=== PATIENT | female | born 1985 | race Hispanic/Latino ===

== ENCOUNTER 2021-06-03 21:48 | Inpatient (IN) | payer MEDICAID, OTHER ==
[2021-06-03] MEDS ORDERED: hydrALAZINE 20 MG/ML VIAL SLOW IVP PRN (22:48)
[2021-06-03 22:49] VITALS: BMI 35.5
[2021-06-03] MEDS ORDERED: Ondansetron PF 4 MG/2 ML Vial IVP PRN (22:53)
[2021-06-03] MEDS ORDERED: Lactated Ringer's 250 ML IV SCH (23:00)
[2021-06-03] MEDS ORDERED: Ondansetron PF 4 MG/2 ML Vial ONE (23:01)
[2021-06-04] MEDS ORDERED: Promethazine HCl 25 MG/ML VIAL IM PRN (03:10)
[2021-06-04] MEDS ORDERED: hydrALAZINE 20 MG/ML VIAL SLOW IVP PRN ×3 (03:10→12:15)
[2021-06-04] MEDS ORDERED: Ondansetron PF 4 MG/2 ML Vial IVP PRN (03:10)
[2021-06-04] MEDS ORDERED: NS w/ Oxytocin 30 units 500 ML ONE ×2 (03:10→05:58)
[2021-06-04] MEDS ORDERED: Penicillin G Potassium 5 MILL.UNITS VIAL ONE (03:11)
[2021-06-04 03:54] LABS: Hemoglobin 12.4 g/dL (12.0-15.5); Mean Corpuscular HGB CONC 31.7 g/dL (32.0-36.0); Mean Corpuscular Hemoglobin 26.9 pg (27.0-33.0); Mean Corpuscular Volume 84.8 fl (81.6-98.3); Mean Platelet Volume 11.3 fl (7.4-10.4); Platelet Count 333 10x3/uL (150-450); RBC Distribution Width 15.1 % (11.5-14.5); Red Blood Cell (RBC) Count 4.61 10x6/uL (3.90-5.03); White Blood Cell (WBC) Count 19.9 10x3/uL (3.5-10.5)
[2021-06-04 04:13] LABS: SARS-CoV-2 NAA Rapid Test Not Detected (NotDetected)
[2021-06-04 04:24] LABS: Hep B Surf Ag Non-Reactive S/CO (NonReactive)
[2021-06-04 04:25] LABS: Syphilis Antibody Nonreactive (Nonreactive); Syphilis Antibody Index 0.05 S/CO (<1.00 Non-Reactive)
[2021-06-04 04:27] LABS: HBSAg Index 0.16 S/CO (0-0.99)
[2021-06-04] MEDS ORDERED: Lidocaine 1% (PF) 30 ML VIAL ONE (05:01)
[2021-06-04] MEDS ORDERED: Boostrix 0.5 ML (Tdap) VIAL IM ONE (08:14)
[2021-06-04] MEDS ORDERED: Bisacodyl 10 MG SUPP PR PRN ×2 (08:14→12:15)
[2021-06-04] MEDS ORDERED: Lanolin Ointment 7 GM TUBE TOP PRN ×2 (08:14→12:15)
[2021-06-04] MEDS ORDERED: Milk Of Magnesia 30 ML UDCUP PO PRN ×2 (08:14→12:15)
[2021-06-04] MEDS ORDERED: Ferrous Sulfate 325 MG TAB PO SCH ×2 (08:30→17:00)
[2021-06-04 08:45] LABS: Hemoglobin 9.3 g/dL (12.0-15.5)
[2021-06-04] MEDS ORDERED: Prenatal Vitamin 1 TAB PO SCH (09:00)
[2021-06-04] MEDS ORDERED: Docusate Calcium (SURFAK) 240 MG CAP PO SCH (09:00)
[2021-06-04 13:34] LABS: HIV (1/2) Antibody/Antigen Non-Reactive (NonReactive); HIV 1/2 INDEX 0.14 S/CO (<1.00)
[2021-06-04] MEDS ORDERED: Ibuprofen 800 MG TAB PO SCH (14:00)
[2021-06-04] MEDS: Ibuprofen 800 MG TAB PO SCH ×2 (14:26→21:14)
[2021-06-04] MEDS: Ferrous Sulfate 325 MG TAB PO SCH (15:19)
[2021-06-04] MEDS: Docusate Calcium (SURFAK) 240 MG CAP PO SCH (21:14)
[2021-06-05] MEDS: Ibuprofen 800 MG TAB PO SCH ×3 (05:13→21:03)
[2021-06-05] MEDS: Docusate Calcium (SURFAK) 240 MG CAP PO SCH ×2 (07:51→21:03)
[2021-06-05] MEDS: Prenatal Vitamin 1 TAB PO SCH (07:51)
[2021-06-05] MEDS: Ferrous Sulfate 325 MG TAB PO SCH ×2 (08:03→15:30)
[2021-06-06] MEDS: Ibuprofen 800 MG TAB PO SCH (05:00)
[2021-06-06 07:47] VITALS: BP 111/74; TEMP 98.5
[2021-06-06] MEDS: Prenatal Vitamin 1 TAB PO SCH (08:24)
[2021-06-06] MEDS: Docusate Calcium (SURFAK) 240 MG CAP PO SCH (08:24)
[2021-06-06] MEDS: Ferrous Sulfate 325 MG TAB PO SCH (08:24)
== END 2021-06-06 12:55 | disposition home or self-care (01) | DRG 805 ==
LOC: CSHLD/OP 21:48 → CSHLD 06-04 00:56 → CSHPP 06-04 12:05
PROVIDERS: ADMIT Student in an Organized Health Care Education/Training Program; ATTEND Student in an Organized Health Care Education/Training Program
PROC: 10E0XZZ Delivery of Products of Conception, External Approach (ICD-10-PCS; principal; 2021-06-04)
DX: O69.81X0 Labor and delivery complicated by cord around neck, without compression, not applicable or unspecified (principal); O45.93 Premature separation of placenta, unspecified, third trimester; Z37.0 Single live birth; Z3A.38 38 weeks gestation of pregnancy; Z20.822 Contact with and (suspected) exposure to COVID-19; E66.9 Obesity, unspecified; O99.214 Obesity complicating childbirth; O66.3 Obstructed labor due to other abnormalities of fetus; O76 Abnormality in fetal heart rate and rhythm complicating labor and delivery; O99.824 Streptococcus B carrier state complicating childbirth
CPT/HCPCS: 36415; 85027; 86780; 86850; 86900; 86901; 87340; 87389; 88307; 99285; J2405; U0002

== ENCOUNTER 2022-04-03 18:30 | Emergency (ER) | payer MEDICAID, SELFPAY ==
[2022-04-03] MEDS ORDERED: Ondansetron ODT 4 MG TAB ONE (20:04)
[2022-04-03] MEDS ORDERED: Ibuprofen 200 MG TAB ONE (20:05)
[2022-04-03 20:22] LABS: #Basophils 0.1 10x3/uL (0.0-0.2); #Eosinphils 0.3 10x3/uL (0.0-0.5); #Monocytes 0.5 10x3/uL (0.0-1.1); #Neutrophils 4.5 10x3/uL (1.5-8.4); %Basophils 1.3 % (0.0-2.0); %Eosinophils 3.5 % (0.0-6.0); %Monocytes 5.5 % (0.0-10.0); %Neutrophils 54.5 % (40.0-75.0); Hemoglobin 11.9 g/dL (12.0-15.5); Mean Corpuscular HGB CONC 32.3 g/dL (32.0-36.0); Mean Corpuscular Hemoglobin 26.9 pg (27.0-33.0); Mean Corpuscular Volume 83.1 fl (81.6-98.3); Mean Platelet Volume 8.8 fl (7.4-10.4); Platelet Count 425 10x3/uL (150-450); RBC Distribution Width 13.8 % (11.5-14.5); Red Blood Cell (RBC) Count 4.43 10x6/uL (3.90-5.03); White Blood Cell (WBC) Count 8.3 10x3/uL (3.5-10.5)
[2022-04-03 20:28] LABS: Bilirubin Neg (Negative); Blood, Urine Negative (Negative); Clarity Clear (Clear); Glucose, Urine (Dipstick) Normal (Negative); Ketone, Urine Negative (Negative); Leukocyte Negative (Negative); Nitrite Negative (Negative); Protein, Urine (Dipstick) Negative (Neg-Trace); Specific Gravity, Urine 1.005 (1.005-1.030); Urobilinogen Normal mg/dL (Less than 2)
[2022-04-03 20:35] LABS: ALT (SGPT) 27 U/L (8-55); AST (SGOT) 27 U/L (5-34); Albumin 4.3 g/dL (3.5-5.0); Alkaline Phosphatase 146 U/L (40-110); Anion Gap 12 mmol/L (10-20); BUN (Urea Nitrogen) 11 mg/dL (7.0-18.7); Bilirubin, Total 0.2 mg/dL (0.2-1.2); Calc. Creatinine Clearance 0 mL/min (70-130); Calcium 9.6 mg/dL (7.8-10.44); Carbon Dioxide 20 mmol/L (22-29); Chloride 111 mmol/L (98-107); Estimated GFR 109; Globulin 3.7 g/dL (2.4-3.5); Glucose 94 mg/dL (70-105); Lipase 37 U/L (8-78); Potassium 4.4 mmol/L (3.5-5.1); Sodium 139 mmol/L (136-145)
[2022-04-03 20:45] LABS: BHCG - Serum Negative (NEGATIVE); Pregs Control Background? CLEAR/WHITE (CLR/WHITE); Pregs Control Bar Appear? YES (CONTROL BAR)
== END 2022-04-03 21:15 | disposition home or self-care (01) ==
LOC: CSHERS 18:30
DX: R10.31 Right lower quadrant pain (principal); R10.32 Left lower quadrant pain
CPT/HCPCS: 80053; 81003; 83690; 84703; 85025; 99284; Q0162

== ENCOUNTER 2023-08-25 17:44 | Emergency (ER) | payer SELFPAY ==
[2023-08-25] MEDS ORDERED: Ketorolac Tromethamine 30 MG (1 mL) VIAL ONE (18:20)
== END 2023-08-25 19:10 | disposition home or self-care (01) ==
LOC: CSHERS 17:44
DX: M79.671 Pain in right foot (principal)
CPT/HCPCS: 96372; 99283; J1885